=== PATIENT | male | born 1955 | race Caucasian/White ===

== ENCOUNTER 2022-11-20 16:17 | Emergency (ER) | payer MEDICARE ==
[2022-11-20] MEDS ORDERED: Lidocaine 1% w/Epinephrine 1:100K 20 ML VIAL ONE (17:11)
== END 2022-11-20 17:30 | disposition home or self-care (01) ==
LOC: NAV ERS 16:17
DX: I83.891 Varicose veins of right lower extremity with other complications (principal); I48.91 Unspecified atrial fibrillation
CPT/HCPCS: 99283